=== PATIENT | female | born 1970 | race Caucasian/White ===

== ENCOUNTER → 2016-09-23 | Outpatient (CLI) | payer MEDICARE, MEDICAID ==
--- OUTSIDE RECORDS SUMMARY | 2016-09-23 10:28 | XMS REPORT | Continuity of Care Document ---
Author Author [facility] Organization [facility] Address Unknown Phone Unavailable Care Team Providers Care Information Technology Officer Name Role Phone PCP Unavailable Source Comments Some departments are not documenting in the electronic medical record. If you do not see the information that you expected, contact Release of Information in the Health Information Management department at [phone] for further assistance in locating additional records.[facility] Active Allergies and Adverse Reactions No Known Allergies Current Medications Prescription Sig. Disp. Refills Start End Date Status Date Ranitidine HCl 150 mg cap Take by mouth. Active baclofen (LIORESAL) 10 mg Take 10 mg by mouth three Active tablet times daily. LORazepam (ATIVAN) 1 mg Take 1 mg by mouth every Active tablet 4 hours as needed for Nausea, Vomiting or Other.... diclofenac sodium DR Take 75 mg by mouth twice Active (VOLTAREN) 75 mg tablet daily. folic acid (FOLVITE) 1 mg Take 1 mg by mouth daily. Active tablet ropinirole XL(+) (REQUIP Take 2 mg by mouth daily. Active XL) 2 mg tablet ADALIMUMAB (HUMIRA SC) Inject into area(s) as Active directed. METHOTREXATE (PF) SC Inject into area(s) as Active directed. Active Problems No known active problems Most Recent Encounters Date Type Specialty Providers Description 09/06/2016 Documentation Otolaryngology Julissa Judge AUD 09/04/2016 Orders Only Otolaryngology Louie Weaver MD Hearing loss, neural (Primary Dx) 09/03/2016 Telephone Otolaryngology Julissa Judge AUD Cochlear Implant Social History Tobacco Use Types Packs/Day Years Used Date Current Every Day Smoker Cigarettes 0.5 Alcohol Use Drinks/Week oz/Week Comments No Last Filed Vital Signs Vital Sign Reading Time Taken Blood Pressure 135/88 11/20/2015 2:39 PM CDT Pulse 79 11/20/2015 2:39 PM CDT Temperature - - Respiratory Rate - - Height 1.676 m (5' 6") 11/20/2015 2:39 PM CDT Weight 81.647 kg (180 lb) 11/20/2015 2:39 PM CDT Body Mass Index 29.07 11/20/2015 2:39 PM CDT Oxygen Saturation - - Plan of Care Health Maintenance Due Date Last Done Comments Physical (Comprehensive) 1976 Exam Pertussis Vaccine 1980 Tetanus Vaccine 1986 Cervical Cancer Screening 1990 Breast Cancer Screening 2009 Influenza Vaccine 04/25/2016 Results from Last 3 Months Not on file
--- NOTE | 2016-09-23 11:13 | Diagnostic Imaging Report ---
CLINICAL INDICATION: Patient with left-sided hearing loss. Hearing loss since age 14 years of age[address] scan of the temporal bones performed without IV contrast. Coronal reformatted images were created. COMPARISON: None. FINDINGS: There is minimal debris within the right external auditory canal which may represent cerumen. Otherwise, the temporal bone structures are unremarkable. The mastoid air cells are clear. The IACs, inner ears, middle ears, and external auditory canals are unremarkable. The oval and round windows are patent. There is no evidence of semicircular canal dehiscence. The visualized temporal bone portions of cranial nerve VII has normal appearance. No evidence of aberrant vascular structures. The vestibular aqueducts have normal appearance bilaterally. The visualized extracranial soft tissues and paranasal sinuses are unremarkable. IMPRESSION: There is minimal debris or cerumen within the right external auditory canal. Otherwise, unremarkable CT scan of the temporal bones. Dictated by: Dictated on workstation # [id number]
== END ==
LOC: RAD 10:23
PROVIDERS: ATTEND Specialist
DX: H90.5 Unspecified sensorineural hearing loss (principal)
CPT/HCPCS: 70480